=== PATIENT | female | born 1975 | race Caucasian/White ===

== ENCOUNTER 2019-03-02 07:41 | Day surgery (SDC) | payer OTHER ==
[2019-03-02] MEDS ORDERED: MORPHINE SULFATE 10 MG/ML VIAL ONE (08:48)
[2019-03-02] MEDS ORDERED: LIDOCAINE HCL 2% PF 100MG/5ML VIAL IJ ONE (08:48)
[2019-03-02] MEDS ORDERED: LACTATED RINGERS 1,000 ML IV.SOLN IV ONE (08:48)
[2019-03-02] MEDS ORDERED: ROCURONIUM BROMIDE 10 MG/ML 5ML VIAL ONE (08:48)
[2019-03-02] MEDS ORDERED: THROMBIN (RECOMBINANT) 20,000 UNIT VIAL TP ONE (08:48)
[2019-03-02] MEDS ORDERED: BACITRACIN 50,000 UNIT VIAL IR ONE (08:48)
[2019-03-02] MEDS ORDERED: ONDANSETRON HCL/PF 4 MG/ 2ML VIAL ONE (08:48)
[2019-03-02] MEDS ORDERED: CLINDAMYCIN PHOSPHATE 900 MG/6 ML VIAL ONE (08:48)
[2019-03-02] MEDS ORDERED: SUGAMMADEX SODIUM 500 MG/5 ML VIAL IV ONE (08:48)
[2019-03-02] MEDS ORDERED: PROPOFOL 200 MG/20 ML VIAL IV ONE (08:48)
[2019-03-02] MEDS ORDERED: GELATIN SPONGE,ABSORB/PORCINE (SIZE 100) 1 EACH SPONGE TP ONE (08:48)
[2019-03-02] MEDS ORDERED: DEXAMETHASONE SODIUM PHOSPHATE 10 MG/ML VIAL ONE (08:48)
[2019-03-02] MEDS ORDERED: PHENYLEPHRINE HCL 10 MG/1 ML ONE (08:48)
[2019-03-02] MEDS ORDERED: BUPIV. HCL 0.5% (5MG/ML)/EPI. (1:200,000) PF 30 ML VIAL IJ ONE (08:48)
[2019-03-02] MEDS ORDERED: MIDAZOLAM HCL 2 MG/2 ML VIAL ONE (08:48)
[2019-03-02] MEDS ORDERED: fentaNYL CITRATE/PF 100 MCG/2 ML INJ. ONE (14:52)
[2019-03-04 14:11] VITALS: BP 108/55
--- NOTE | 2019-03-05 15:56 | Operative Note ---
PROCEDURE DATE: 03/02/2019 PREOPERATIVE DIAGNOSIS: 1. Spinal stenosis, L4-5. 2. Spinal stenosis, L5-S1. 3. Foraminal stenosis, L4-5. 4. Foraminal stenosis, L5-S1. 5. Spondylolisthesis, L4-5, with instability, L4-5. 6. Previous laminectomy, L5-S1. POSTOPERATIVE DIAGNOSIS: 1. Spinal stenosis, L4-5. 2. Spinal stenosis, L5-S1. 3. Foraminal stenosis, L4-5. 4. Foraminal stenosis, L5-S1. 5. Spondylolisthesis, L4-5, with instability, L4-5. 6. Previous laminectomy, L5-S1. PROCEDURES PERFORMED: 1. L4-5 posterior interbody fusion (code 99046). 2. Posterior instrumentation (code 62932). 3. Bilateral laminectomy with partial facetectomy and neural foraminotomy, L4 (code 22096-38-08). 4. Bilateral laminectomy with partial facetectomy and neural foraminotomy, L5 (code 36049-46). 5. Bilateral laminectomy with partial facetectomy and neural foraminotomy, S1 (code 34436-80). 6. Insertion interbody cage prosthesis, L4-5 (code 77653). 7. Autograft (code 54064). 8. Allograft (code 04360). 9. Fluoroscopy for localization (code 32733-69). SURGEON: Meme Vidal M.D. FAMILY LAWYER: OBINNA Miller. ANESTHESIA: General via endotracheal tube. ESTIMATED BLOOD LOSS: 220 mL. INDICATIONS: The patient has intractable back and lower extremity pain. She is known to have an unstable segment at L4-5. The patient has recurrent spinal stenosis at L5-S1. The patient has become refractory to all forms of multimodality conservative management and requests that we proceed with operative stabilization and decompression. The patient understands the risks of surgery to be , DVT, pulmonary embolism, paraplegia, loss of the use of the legs, loss of bowel and bladder function, loss of sexual function, possibility of bleeding, bleeding requiring transfusion, transfusion-attendant risks of AIDs and hepatitis, infection, instability, the need for revision, prolonged hospital stay, dural leak, spinal headache, and the patient requested we proceed. She also understood the small chance of infection. DESCRIPTION OF PROCEDURE: The patient was brought to the operating room and administered general anesthesia via endotracheal tube. The lower extremities were treated with EDIS hose and intermittent compression stockings. She was positioned on the Connor table in the prone position with all bony prominences padded appropriately. Care was taken to ensure the shoulders were not abducted more than 90 degrees, or the elbows flexed more than 90 degrees. There was no undue pressure on the cubital or carpal canals. The area of the anterior superior iliac spine was well padded to protect the lateral femoral cutaneous nerve. The hips and knees were well padded and there was no pressure on the dorsum of the feet. The patient's low back being positioned as neutral as possible was then defatted with alcohol and visualized under fluoroscopy. The pedicles of L3, L4, L5 and S1 were marked on the patient's back for surgical reference. The patients back was sterilely prepped and draped, and then sharp dissection was continued through the skin and subcutaneous tissues and the previous scar to the level of the deep fascia, and then the subperiosteal dissection of the remaining spinous processes and unviolated lamina were exposed. We carefully dissected the previous area at L5-S1, avoiding inadvertent deeper penetration of the unprotected dura at the laminectomy site. The patients spine was eventually exposed from L4 and L5 to S1, from tip of transverse process to tip of transverse process. We affixed clamps to the tips of the spinous processes of L4 and L5 which proved our level under lateral fluoroscopy and also gave us our pedicle directions, having placed the clamps perpendicular to the floor. With the clamps perpendicular to the floor, we were able to human resources hr representative our pedicle direction. We decorticated the base of the transverse process in line with the lateral facet, inserted our pedicle probe, drove it to a depth of 40 mm, withdrew it, palpated the hole to ensure cortical integrity in all four quadrants. When this was assured, we used bone wax for hemostatic tamponade and then we were able to put metallic markers in L4 and L5 bilaterally. Fluoroscopy in the AP and lateral plane again requiring fluoroscopic exposure and interpretation told us our pedicle markers were in superb position. Pedicle markers were sequentially removed, the holes were tapped, and the holes again palpated to ensure cortical integrity. But before insertion of the screws, the posterolateral elements were all exposed and decorticated at L4-5 to accept posterolateral bone graft. We used synthetic bone posterolaterally and at the end this would be augmented with the patient's local bone taken from the laminectomy. With the bone in place, we then inserted the screws, measured, cut and contoured the rods, performed a reduction maneuver and obtained a near anatomic reduction of the L4-5 spondylolisthesis. We locked the right side in place and then moved to the left side and performed exactly the same procedure. We tapped the holes, we palpated to ensure cortical integrity, we decorticated posterolaterally, and placed synthetic bone, later to be augmented with the patient's own bone in the posterolateral gutters to affect a posterolateral fusion, inserted the screws, measured, cut and contoured the rods, and then performed a reduction maneuver, completing the reduction maneuver and getting a near anatomic reduction of L4 on L5. We locked the caps and turned our attention to the decompression. We removed any remaining spinous processes so that we could perform a wide decompressive laminectomy at L4 and redo at L5 and S1. The laminectomy site at L5 and S1 was carefully dissected and the bony margins of that previous decompression were defined. We then used a high-speed drill to thin the lamina of L4, L5 and S1. We used micro curettes to separate the ligamentum flavum from the undersurface of the lamina and at L5- S1, the scarred dura from the undersurface of the lamina before it was resected with the 3-mm Kerrison. After obtaining a central decompression at L4, redo at L5 and S1, we turned it lateralward cephalad on the right and marched our way down the lateral recess, performing lateral recess decompression and complete neural foraminal decompressions with the 3-mm Kerrison. The lateral recess was cleared by removing the ligament and performing partial facetectomies, and the facets were undercut and ligament resected to clear the neural foramen. When complete, the neural elements were completely free. On the left side, we performed a complete laminectomy at L4 and a wide decompressive laminectomy at L5. We performed a very aggressive neural foraminotomy at L4 and L5-S1, her main site of radicular symptoms. We exposed the disc of L4-5, achieved an annular window with a 15 blade, ran the disc until we had performed a total discectomy of L4-5. We used the eloy to a size 11 to get to punctate bleeding bone of the endplate. Between each shaver, we used the pituitaries to remove the disc material and debris. When complete, we were able to pack bone into the L4-5 interspace using morselized bone from the laminectomy that had been morselized into a paste-like consistency. We packed the 11-mm interbody cage prosthesis and after the trial was placed and checked under AP and lateral fluoroscopy and found to be in excellent position with interference fit, we applied the L4-5 cage to the space, packed with the patient's own bone, representing autograft local bone. We then compressed the construct, compressing the L4-5 level, and then locked the locking caps in this compressed position. We checked the foraminal regions to ensure we had not compressed to the point of recurrent stenosis, and all nerve roots broke completely free. We copiously irrigated with a liter of antibiotic-containing solution. We were able to drill out the facets on the right and these were packed with the remaining local bone. Residual local bone was packed in the posterolateral gutters, affecting a posterolateral, a posterior interfacet fusion, and a posterior interbody fusion. We then applied a transverse connector, placed pledgets of thrombin-soaked Gelfoam over the spinal canal after a liter of antibiotic irrigant had been placed through the wound. We obtained meticulous hemostasis. We closed the deep fascial layer with 0 Ethibond [id number] interrupted fashion, the deep subcu with 0 Vicryl, the superficial subcu with 2- 0 Vicryl, and the skin with subcuticular 3-0, dressed it with benzoin, Steri- Strips, Xeroform sterile dressing sponges, and a Bioclusive. The patient tolerated the procedure well. There were no technical misadventures. She was physiologically stable throughout. The patient was being transported to the recovery room for close serial neurovascular observation, continued prophylactic antibiotic and serial neurovascular exams, to be discharged to the floor when stable. The patient's final blood loss was 220 mL. The patient was physiologically stable throughout without noted technical misadventure, and final AP and lateral fluoroscopy views showing excellent position of all instrumentation with an anatomic reduction of the L4-5 unstable spondylolisthesis. MEME VIDAL M.D. LEODAN/blaine (Please copy [facility] provider when applicable) Job #[id number] YENNIFER
== END 2019-03-02 15:09 | disposition other institution (70) ==
LOC: OPSURG 07:41
DX: M48.061 Spinal stenosis, lumbar region without neurogenic claudication (principal); M48.07 Spinal stenosis, lumbosacral region; M43.16 Spondylolisthesis, lumbar region; Z98.890 Other specified postprocedural states
CPT/HCPCS: 20930; 20936; 22633; 22840; 22853; 63042; 63047; 86885; 86900; 86901; 86920; J2001; J2250; J2270; J2370; J2405; J2704; J3010; J3490; J7120